=== PATIENT | female | born 1955 | race Caucasian/White ===

== ENCOUNTER 2017-11-12 04:16 | Emergency (ER) | END 2017-11-12 08:24 | disposition home or self-care (01) ==

== ENCOUNTER 2018-03-12 07:24 | Emergency (ER) | END 2018-03-12 10:22 | disposition home or self-care (01) ==

== ENCOUNTER 2018-07-24 20:03 | Emergency (ER) | END 2018-07-24 23:15 | disposition home or self-care (01) ==

== ENCOUNTER 2019-02-15 06:56 | Emergency (ER) | payer BC ==
[~2019-02-15] VITALS: Ht 162.6 cm; Wt 58.0 kg
[~2019-02-15 06:56] MED LIST: ATEN100T PO; BEN50 PO; CHOL200073 PO; FAMO20TA18 PO; LORA-1026 PO; UDATA PO
[2019-02-15] MEDS ORDERED: SODIUM CHLORIDE 0.9% 1L BAG IV* STA (07:04)
[2019-02-15] MEDS ORDERED: CEFEPIME 2GM/50 ML (PMX) 50 ML IVPB STA (07:05)
[2019-02-15] MEDS ORDERED: ONDANSETRON 4 MG INJ IV STA (07:25)
[2019-02-15] MEDS ORDERED: VANCOMYCIN 1 GM (PMX) 250 ML IVPB ONE (07:30)
[2019-02-15 07:44] VITALS: Ht 162.6 cm; Wt 58.0 kg
[2019-02-15] MEDS ORDERED: LORAZEPAM 2 MG INJ IV ONE (08:00)
[2019-02-15] MEDS ORDERED: METOCLOPRAMIDE 10 MG INJ IV ONE (09:00)
[2019-02-15] MEDS ORDERED: SOD CHLORIDE 0.9% 1,000 ML IV SCH (09:44)
--- NOTE | 2019-02-15 09:50 | ERD ---
ER Documentation Chief Complaint Chief Complaint NAUSEA, VOMITING, & MALAISE STARTING THIS MORNING HPI This is a 63-year-old female with a history of hypertension, GERD, anxiety who presents to the emergency room for evaluation of nausea, vomiting and generalized weakness. The patient states her symptoms started this morning when she woke up. She states that she has body aches and fever at home. She also states that she has a chills. She states that she also has abdominal cramping which she localized to the midportion of the abdomen however she denies any chest pain or painful urination. ROS All systems reviewed and are negative except as per history of present illness. Medications Home Meds Active Scripts Hydroxyzine Hcl* (Atarax*) 2 Mg/Ml Syrup, 25 MG PO Q6H PRN for ANXIETY, #14 ML Prov:MERLINE RIVERA MD 07/24/18 Famotidine* (Famotidine*) 20 Mg Tablet, 20 MG PO BID, #14 TAB Prov:MERLINE RIVERA MD 07/24/18 Diphenhydramine Hcl* (Benadryl*) 50 Mg Cap, 50 MG PO Q6 PRN for ITCHING, #20 CAP Prov:MERLINE RIVERA MD 07/24/18 Reported Medications Cholecalciferol (Vitamin D3) (VITAMIN D-3) 2,000 Unit Capsule, 2000 UNIT PO DAILY, CAP 07/24/18 Loratadine (Allergy) 10 Mg Tablet, 10 MG PO DAILY, TAB 07/24/18 Atenolol* (Atenolol*) 100 Mg Tablet, 100 MG PO DAILY for NEEDED, TAB 04/12/15 Allergies Allergies: Coded Allergies: codeine (Verified Allergy, Mild, 07/24/18) PMhx/Soc Medical and Surgical Hx: pt denies Medical Hx, pt denies Surgical Hx History of Surgery: Yes (Cholecystectomy, appendectomy and hysterectomy) Anesthesia Reaction: No Hx Neurological Disorder: No Hx Respiratory Disorders: No Hx Cardiac Disorders: Yes (HTN) Hx Psychiatric Problems: Yes (ANXIETY) Hx Miscellaneous Medical Probl: No Hx Alcohol Use: No Hx Substance Use: No Hx Tobacco Use: No Smoking Status: Never smoker Physical Exam Vitals Vital Signs Date Temp Pulse Resp B/P (MAP) Pulse Ox O2 O2 Flow FiO2 Time Delivery Rate 02/15/19 Nasal 2 07:44 Cannula 02/15/19 97.5 108 24 132/86 100 07:44 (101) Physical Exam INITIAL VITAL SIGNS: Reviewed by me GENERAL: The patient is frail-appearing elderly female, mild distress, dry vomit on shirt HEENT: Dry mucous membranes, pupils equal, round, and reactive to light. EOMI. There is no scleral icterus. NECK: C-spine is soft and supple, there is no meningismus. There is no cervical lymphadenopathy. LUNGS: Clear to auscultation bilaterally. There are no rales, wheezes or rhonchi. HEART: Tachycardic, no murmurs, clicks, rubs or gallops. ABDOMEN: Epigastric tenderness to palpation, otherwise soft, non-tender, non- distended. There are bowel sounds in all four quadrants. No rebound or guarding. EXTREMITIES: There is no peripheral cyanosis or edema. No focal swelling or erythema. NEUROLOGICAL: The patient moves all four extremities with 5/5 strength. Cranial nerves II - XII are intact. Normal gait. Alert and oriented SKIN: There is no apparent rash or petechiae. HEME/LYMPHATIC: There is no evidence of excessive bruising or lymphedema. PSYCHIATRIC: The patient does not appear anxious or depressed. Result Diagram: 02/15/19 0722 02/15/19 07 Results 24 hrs Laboratory Tests Test 02/15/19 07:22 02/15/19 08:15 White Blood Count 11.9 10^3/ul Red Blood Count 4.93 10^6/ul Hemoglobin 12.2 g/dl Hematocrit 39.4 % Mean Corpuscular Volume 79.9 fl Mean Corpuscular Hemoglobin 24.7 pg Mean Corpuscular Hemoglobin Concent 31.0 g/dl Red Cell Distribution Width 13.4 % Platelet Count 356 10^3/UL Mean Platelet Volume 9.6 fl Immature Granulocytes % 0.700 % Neutrophils % 69.1 % Lymphocytes % 24.0 % Monocytes % 4.8 % Eosinophils % 1.1 % Basophils % 0.3 % Nucleated Red Blood Cells % 0.0 /100WBC Immature Granulocytes # 0.080 10^3/ul Neutrophils # 8.3 10^3/ul Lymphocytes # 2.9 10^3/ul Monocytes # 0.6 10^3/ul Eosinophils # 0.1 10^3/ul Basophils # 0.0 10^3/ul Nucleated Red Blood Cells # 0.0 10^3/ul Prothrombin Time 13.2 Sec Prothrombin Time Ratio 1.0 INR International Normalized Ratio 0.99 Activated Partial Thromboplast Time 28.7 Sec Sodium Level 141 mmol/L Potassium Level 5.3 mmol/L Chloride Level 108 mmol/L Carbon Dioxide Level 23 mmol/L Anion Gap 10 Blood Urea Nitrogen 19 mg/dl Creatinine 0.68 mg/dl Est Glomerular Filtrat Rate mL/min > 60 mL/min Glucose Level 228 mg/dl POC Venous Lactate 2.8 mmol/L Calcium Level 10.1 mg/dl Total Bilirubin 0.5 mg/dl Direct Bilirubin 0.00 mg/dl Indirect Bilirubin 0.5 mg/dl Aspartate Amino Transf (AST/SGOT) 19 IU/L Alanine Aminotransferase (ALT/SGPT) 18 IU/L Alkaline Phosphatase 133 IU/L Troponin I 0.073 ng/ml Total Protein 7.3 g/dl Albumin 4.1 g/dl Globulin 3.20 g/dl Albumin/Globulin Ratio 1.28 Urine Color YELLOW Urine Clarity SLIGHTLY CLOUDY Urine pH 5.0 Urine Specific [place] 1.017 Urine Ketones TRACE mg/dL Urine Nitrite NEGATIVE mg/dL Urine Bilirubin NEGATIVE mg/dL Urine Urobilinogen NEGATIVE mg/dL Urine Leukocyte Esterase NEGATIVE Med/ul Urine Microscopic RBC 1 /HPF Urine Microscopic WBC 1 /HPF Urine Squamous Epithelial Cells FEW /HPF Urine Mucus FEW /HPF Urine Hemoglobin NEGATIVE mg/dL Urine Glucose 1+ mg/dL Urine Total Protein NEGATIVE mg/dl Current Medications Medications Dose Sig/Pennie Start Time Status Last (Trade) Ordered Route PRN Stop Time Admin Dose Reason Admin Sodium 2,500 ml BOLUS OVER 2 02/15/19 DC 02/15/19 Chloride HOURS STAT 07:04 02/15/19 07:32 (NS) IV* 07:05 Cefepime HCl 50 ml @ ONCE STAT 02/15/19 DC 02/15/19 100 mls/hr IVPB 07:05 02/15/19 07:40 07:34 Vancomycin 250 ml @ ONCE ONCE 02/15/19 DC 02/15/19 HCl 125 mls/hr IVPB 07:30 02/15/19 08:21 09:29 Ondansetron 4 mg ONCE STAT 02/15/19 DC 02/15/19 HCl (Zofran IV 07:25 02/15/19 07:30 Inj) 07:26 Lorazepam 0.5 mg ONCE ONCE 02/15/19 DC 02/15/19 (Ativan) IV 08:00 02/15/19 08:07 08:01 5 mg ONCE ONCE 02/15/19 DC 02/15/19 Metoclopramid IV 09:00 02/15/19 09:23 e HCl 09:01 (Reglan) Procedures/MDM EKG: Rate/Rhythm: Sinus tachycardia QRS, ST, T-waves: [No changes consistent w/ acute ischemia] Impression: [No evidence of ischemia or arrhythmia] Chest X-ray 1V Interpreted by me: Soft Tissue: No acute abnormalities Bones: No acute abnormalities Mediastinum/Cardiac Silhouette/Lungs: [No acute abnormalities] CT abdomen pelvis without: No evidence of urolithiasis, obstructive uropathy or diverticulitis. Nonvisualization appendix. Old granulomatous disease. Vascular calcifications.. This is a 63-year-old female with a history of hypertension, GERD, anxiety presents to the ER for evaluation of nausea, vomiting, body aches and generalized weakness. On my exam the patient had dry mucous membranes and she was tachycardic. She did have dried vomit on her clothing. A septic workup was started in the emergency room and the patient was given appropriate fluid bolus. The patient's lab work does not demonstrate leukocytosis, her chest x-ray is clear, influenza is negative. The patient does have elevated lactic acid however this is likely secondary to dehydration from her vomiting as opposed to an infectious source. The patient was given Zofran, however she continued to have nausea. The patient was given Reglan and continued to vomit. She was given Ativan as well with mild control of her nausea. She still states she is extremely nauseous and cannot tolerate p.o. fluids. CT of the abdomen and pelvis was obtained and does not show any acute pathology. Given her age and her presenting symptoms the patient will be admitted at this time for continuous IV fluids, and antiemetics. The patient will be admitted to panel physician Dr. Garcia Critical Care: Excluding all billable procedures Time: 47 minutes Treatments/Evaluations: Close monitoring and treatment of unstable vital signs, cardiorespiratory, and neurologic status, while maintaining tight balance of fluid, respiratory, and cardiac interventions. Departure Diagnosis: Primary Impression: Intractable vomiting Additional Impressions: Nausea and vomiting Abdominal pain Anxiety Condition: JENISE Wilson DO Feb 15, 2019 09:50
[2019-02-15 10:00] VITALS: BP 130/88; PULSE 111; RESP 24
[2019-02-15] MEDS ORDERED: ACETAMINOPHEN 325 MG TAB PO PRN (10:00)
[2019-02-15] MEDS ORDERED: ONDANSETRON 4 MG INJ IV PRN ×2 (10:00→10:30)
[2019-02-15] MEDS ORDERED: morphine 2 MG INJ IV PRN (10:30)
[2019-02-15] MEDS ORDERED: NACL 0.9% 3 ML SYG IV SCH (10:30)
[2019-02-15] MEDS ORDERED: PROP10TA6 ORAL (11:06)
[2019-02-15] MEDS ORDERED: HYDR-842 ORAL (11:06)
[2019-02-15] MEDS ORDERED: SPIR25TA PO (11:06)
[2019-02-15] MEDS ORDERED: OXYB10TA6 PO (11:06)
[2019-02-15] MEDS ORDERED: CHOL100062 PO (11:06)
[2019-02-15] MEDS ORDERED: CLON-379 PO (11:06)
[2019-02-15] MEDS ORDERED: METH-493 PO (11:06)
[2019-02-15] MEDS ORDERED: LISI-313 PO (11:06)
[2019-02-15] MEDS ORDERED: ASPI-817 PO (11:06)
--- NOTE | 2019-02-15 12:09 | EN ---
Date/Time of Note Date/Time of Note DATE: 02/15/19 TIME: 12:07 Event Note Medicine Medicine Event Note Patient admitted wtih nausea and vomiting CT benigng Labs notable for hyperglycemia very mild troponin elevated Patient appears unwell. Tachypneic. Mildly hypoxic. When I talked to her and via tranlsator phone they are asking to go home. I told them I am very worried something is wrong with her. Perhaps CHF, perhaps DE, perhpas sepsis. They understand my assessment that she is acutely ill and is at risk for imminent . Despite clearly undertanding this, the patient is asking to be discharged home. She has capacity to make this decision and I have clearly explained the risks to her. She accepts the risks and will sign out NATIVIDAD SPICER MD Feb 15, 2019 12:09
[2019-02-15] MEDS ORDERED: FAMOTIDINE 20 MG INJ IV SCH (21:00)
== END 2019-02-15 11:05 | disposition left against medical advice (07) ==
LOC: E/R 06:56 → CANRESERV 11:40 → CANBEDREQ 02-17 21:32
DX: R11.2 Nausea with vomiting, unspecified (principal); R10.9 Unspecified abdominal pain; F41.9 Anxiety disorder, unspecified; I10 Essential (primary) hypertension
CPT/HCPCS: 36415; 71045; 74176; 80053; 81001; 83605; 84484; 85025; 85610; 85730; 87040; 87086; 87400; 96374; 96375; 96376; J0692; J2060; J2405; J2765; J3370; J7030; Z7502; Z7610; 81003

== ENCOUNTER 2019-02-18 05:13 | Observation (INO) | payer BC ==
[~2019-02-18] VITALS: Ht 152.4 cm; Wt 66.4 kg
[2019-02-18] VITALS (7 sets, daily range): BP systolic 122–140; BP diastolic 72–93; PULSE 94–122; RESP 20–22; Ht 152.4 cm; Wt 66.4 kg
[~2019-02-18 05:13] MED LIST changes: +ASPI-817 PO; +CHOL100062 PO; +CLON-379 PO; +HYDR-842 ORAL; +LISI-313 PO; +METH-493 PO; +OXYB10TA6 PO; +PROP10TA6 ORAL; +SPIR25TA PO
[2019-02-18] MEDS: ACETAMINOPHEN 325 MG TAB PO ONE ×2 (06:23→06:53)
[2019-02-18] MEDS ORDERED: LORAZEPAM 2 MG INJ IV ONE ×2 (06:30→09:00)
--- NOTE | 2019-02-18 07:04 | ERD ---
ER Documentation Chief Complaint Chief Complaint mid sternal chest pain x1 hr. 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 The patient presents with multiple complaints that include headache, nausea, chest pain. Patient is having difficulty characterizing any of the symptoms. Duration for approximately 1-2 days. She did not note that she was here approximately 3 days ago and admitted but left AGAINST MEDICAL ADVICE. Patient is extremely anxious and does take anxiety medications. Remainder of HPI is limited given the patient's history. ROS All systems reviewed and are negative except as per history of present illness. Medications Home Meds Active Scripts Hydroxyzine Hcl* (Atarax*) 2 Mg/Ml Syrup, 25 MG PO Q6H PRN for ANXIETY, #14 ML Prov:MERLINE RIVERA MD 07/24/18 Famotidine* (Famotidine*) 20 Mg Tablet, 20 MG PO BID, #14 TAB Prov:MERLINE RIVERA MD 07/24/18 Diphenhydramine Hcl* (Benadryl*) 50 Mg Cap, 50 MG PO Q6 PRN for ITCHING, #20 CAP Prov:MERLINE RIVERA MD 07/24/18 Reported Medications Clonidine Hcl* (Clonidine Hcl*) 0.1 Mg Tab, 0.1 MG PO Q6H PRN for FOR HTN, TAB 02/15/19 Oxybutynin Chloride* (Ditropan* XL) 10 Mg Tab.er.24, 10 MG PO DAILY, TAB.SA 02/15/19 Aspirin* (Aspirin* EC) 81 Mg Tablet.dr, 81 MG PO DAILY, TAB 02/15/19 Spironolactone* (Aldactone*) 25 Mg Tablet, 25 MG PO DAILY, #30 TAB 02/15/19 Lisinopril* (Lisinopril*) 5 Mg Tablet, 5 MG PO DAILY, #30 TAB 02/15/19 Methimazole* (Methimazole*) 5 Mg Tablet, 5 MG PO TID, TAB 02/15/19 Cholecalciferol* (Vitamin D3*) 1,000 Unit Tablet, 5000 UNIT PO DAILY, TAB 02/15/19 Propranolol Hcl* (Propranolol Hcl*) 10 Mg Tablet, 1 TAB ORAL DAILY 02/15/19 Hydroxyzine Hcl* (Atarax*) 25 Mg Tab, 1 TAB ORAL TID PRN for ALLERGIC REACTION 02/15/19 Cholecalciferol (Vitamin D3) (VITAMIN D-3) 2,000 Unit Capsule, 2000 UNIT PO DAILY, CAP 07/24/18 Loratadine (Allergy) 10 Mg Tablet, 10 MG PO DAILY, TAB 07/24/18 Atenolol* (Atenolol*) 100 Mg Tablet, 100 MG PO DAILY for NEEDED, TAB 04/12/15 Allergies Allergies: Coded Allergies: codeine (Verified Allergy, Mild, 02/18/19) PMhx/Soc History of Surgery: Yes (Cholecystectomy, appendectomy and hysterectomy) Anesthesia Reaction: No Hx Neurological Disorder: No Hx Respiratory Disorders: No Hx Cardiac Disorders: Yes (HTN) Hx Psychiatric Problems: Yes (ANXIETY) Hx Miscellaneous Medical Probl: No Hx Alcohol Use: No Hx Substance Use: No Hx Tobacco Use: No FmHx Family History: No diabetes Physical Exam Vitals Vital Signs Date Temp Pulse Resp B/P (MAP) Pulse Ox O2 O2 Flow FiO2 Time Delivery Rate 02/18/19 74 20 112/68 97 Room Air 06:30 (83) 02/18/19 97.7 89 20 136/76 97 05:16 (96) Physical Exam General: Very anxious, hyperventilating Head: Normocephalic, atraumatic. Eyes: Pupils equally reactive, EOM intact ENT: Moist mucous membranes Neck: Supple, no lymphadenopathy Respiratory: Lungs clear bilaterally, no distress Cardiovascular: RRR, no murmurs, rubs, or gallops Abdominal: Soft, non-tender, non-distended, no peritoneal signs : Deferred MSK: No edema, no unilateral swelling, 5/5 strength Neurologic: Alert and oriented, moving all extremities, normal speech, no focal weakness, no cerebellar signs slightly limited exam given poor cooperation Skin: No rash Psych: Anxious mood Result Diagram: 02/18/19 0550 02/18/19 0550 Results 24 hrs Laboratory Tests Test 02/18/19 05:50 White Blood Count 9.8 10^3/ul Red Blood Count 4.21 10^6/ul Hemoglobin 10.6 g/dl Hematocrit 33.0 % Mean Corpuscular Volume 78.4 fl Mean Corpuscular Hemoglobin 25.2 pg Mean Corpuscular Hemoglobin Concent 32.1 g/dl Red Cell Distribution Width 14.2 % Platelet Count 262 10^3/UL Mean Platelet Volume 10.4 fl Immature Granulocytes % 0.300 % Neutrophils % 55.8 % Lymphocytes % 31.8 % Monocytes % 11.0 % Eosinophils % 0.9 % Basophils % 0.2 % Nucleated Red Blood Cells % 0.0 /100WBC Immature Granulocytes # 0.030 10^3/ul Neutrophils # 5.5 10^3/ul Lymphocytes # 3.1 10^3/ul Monocytes # 1.1 10^3/ul Eosinophils # 0.1 10^3/ul Basophils # 0.0 10^3/ul Nucleated Red Blood Cells # 0.0 10^3/ul Sodium Level 143 mmol/L Potassium Level 3.6 mmol/L Chloride Level 107 mmol/L Carbon Dioxide Level 24 mmol/L Anion Gap 12 Blood Urea Nitrogen 26 mg/dl Creatinine 0.65 mg/dl Est Glomerular Filtrat Rate mL/min > 60 mL/min Glucose Level 118 mg/dl Calcium Level 8.9 mg/dl Total Bilirubin 1.0 mg/dl Direct Bilirubin 0.00 mg/dl Indirect Bilirubin 1.0 mg/dl Aspartate Amino Transf (AST/SGOT) 24 IU/L Alanine Aminotransferase (ALT/SGPT) 21 IU/L Alkaline Phosphatase 89 IU/L Troponin I 0.103 ng/ml B-Type Natriuretic Peptide 4980 PG/ML Total Protein 6.2 g/dl Albumin 3.2 g/dl Globulin 3.00 g/dl Albumin/Globulin Ratio 1.06 Current Medications Medications Dose Sig/Pennie Start Time Status Last (Trade) Ordered Route PRN Stop Time Admin Dose Reason Admin Lorazepam 0.5 mg ONCE ONCE 02/18/19 DC 02/18/19 (Ativan) IV 06:30 02/18/19 06:23 06:31 650 mg ONCE ONCE 02/18/19 DC Acetaminophen PO 06:30 02/18/19 (Tylenol 06:31 Tab) Aspirin 324 mg ONCE ONCE 02/18/19 DC 02/18/19 (Aspirin) PO 07:30 02/18/19 07:15 07:31 Ondansetron 4 mg ER BRIDGE 02/18/19 HCl (Zofran PRN IV 08:00 Inj) NAUSEA/VOMITI 02/19/19 07:59 NG 650 mg ER BRIDGE 02/18/19 Acetaminophen PRN PO 08:00 (Tylenol .MILD PAIN 02/19/19 07:59 Tab) 1-3 OR TEMP Procedures/MDM EKG, MONITORS, & DIAGNOSTIC IMAGING: EKG: I reviewed and interpreted a 12-lead EKG. Rhythm: Normal sinus rhythm ST Changes: No contiguous ST segment elevations T waves: Lateral T wave inversions that are contiguous and new Impression: Abnormal EKG Repeat EKG: EKG: I reviewed and interpreted a 12-lead EKG. Rhythm: Normal sinus rhythm ST Changes: No contiguous ST segment elevations T waves: Lateral T wave inversions that are contiguous and new Impression: Abnormal EKG Chest x-ray: I reviewed and interpreted a 1 view of the chest Mediastinum: No enlargement Cardiac silhouette: No cardiomegaly Airspace: Clear lung sawyer bilaterally without evidence of pneumothorax Bones: No evidence of fracture CT brain: No acute process per radiologist read PROCEDURES: [None] LAB INTERPRETATION: * Elevated BNP * Indeterminate troponin MEDICAL DECISION MAKING: The patient's history, physical exam and clinical presentation is concerning for possible cardiogenic etiology and acute coronary syndrome. I am concerned about the patient's new T wave inversions. The patient is very nondescript with her symptoms. There is a strong component of anxiety but given her age, abnormal EKG inpatient hospitalization would be appropriate. Based on the patient's clinical exam and history and risk factors, I have a much lower clinical concern for pulmonary embolism, acute aortic dissection, pneumothorax, pneumonia, cardiac tamponade HEART Score: > 3 MACE Rate: upwards of 16.6% Shared Decision Making: We had a conversation regarding risk stratification, MACE rate, and the risks, benefits, alternatives of disposition planning options. Disposition planning: Admit ER COURSE: * Anxiolysis and aspirin provided. Aspirin given after negative CT brain. * The patient's presentation and does not seem to be consistent with pulmonary embolism. The BNP is slightly elevated. Consider possible new onset CHF. No shortness of breath, no tachycardia no hypoxia to suggest need for CTPA. CONSULTATION: [None] DISPOSITION PLAN: Accepting care team and consultations: I discussed the current laboratory data, diagnostic imaging and emergency care provided. Admitting team: Dr. Villarreal notified via [employer] at approximately 7:46 AM Admitting team indication: Insurance directed Departure Diagnosis: Primary Impression: Chest pain Chest pain type: unspecified Qualified Codes: R07.9 - Chest pain, unspecified Additional Impressions: Anxiety Abnormal EKG Condition: Stable OSMANY PEÑA MD Feb 18, 2019 07:04
[2019-02-18] MEDS ORDERED: ASPIRIN 81 MG TAB PO ONE (07:30)
[2019-02-18] MEDS ORDERED: ACETAMINOPHEN 325 MG TAB PO PRN ×2 (08:00→11:30)
[2019-02-18] MEDS ORDERED: ONDANSETRON 4 MG INJ IV PRN ×2 (08:00→11:30)
--- NOTE | 2019-02-18 11:29 | HP ---
Date/Time of Note Date/Time of Note DATE: 02/18/19 TIME: 11:22 Assessment/Plan VTE Prophylaxis SCD applied (from Nsg): Yes Pharmacological prophylaxis: LMWH Lines/Catheters IV Catheter Type (from Nrsg): Saline Lock Assessment/Plan Hospital Course SUBJECTIVE: Patient appears very anxious and having mild shortness of breath. She also reports chest discomfort. OBJECTIVE: Vital signs-see below PHYSICAL EXAM: Constitutional: Chinese speaking female who is also anxious, having mild VELÁZQUEZ HEENT: Head atraumatic and normocephalic. Eyes: Extraocular muscles intact. Anicteric sclerae. Pupils equal bilaterally, reactive to light. NECK: Supple without lymph node. CHEST: Clear and good breath sounds equally. No wheezing. No rhonchi. HEART: S1, S2. Regular rate and rhythm. ABDOMEN: Soft, nontender. Bowel sounds were present. EXTREMITIES: Full range of motion in all the extremities. No cyanosis, clubbing or edema. NEUROLOGIC: Alert and oriented x3. No focal deficit. No sensory deficit. PSYCHOSOCIAL: Extremely anxious. INTEGUMENTARY: Moist mucous membranes. Good skin turgor, intact. ASSESSMENT AND PLAN: 63-year-old Chinese speaking female with history of hypertension, allergies,hyperthyroidism, overactive bladder, vitamin D deficiency, here with chest pain,anxiety, dyspnea on exertion, and headache. 1. Chest pain /VELÁZQUEZ syndrome with elevated BNP/abnormal EKG, rule out acute coronary syndrome/CHF vs other. -Admit to telemetry -ACS workup including biomarkers, repeat EKG -Cardiology consult -Aspirin prophylaxis, as needed nitro, as needed morphine for pain control -TSH, T4 level 2. Microcytic anemia, rule out iron deficiency -Stable H&H. In light of patient with dyspnea and chest pain, I will go ahead and give 1 dose of IV iron and will add iron panel and treat accordingly. 3. Essential hypertension -Stable. Resume home medications 4. Hyperthyroidism -Patient is extremely anxious and she is also hyperventilating. She denied having a history of taking medication for hypothyroidism. At this time, we will obtain TSH /T4/T3 levels to make sure she is appropriately dosed on her medications. -Resume methimazole. 5. Overactive bladder. -Resume Ditropan 6. Vitamin D deficiency -Resume supplementation and obtain a vitamin D level. 7. Seasonal allergy disorders -Resume antihistamines. DVT prophylaxis: Lovenox PUD prophylaxis: H2 blockers CODE STATUS: Full code Diet: N.p.o. except medications until evaluated by cardiology. Rest of the management depend on hospital course. Approximately 60 minutes was spent on this history and physical. Patient was seen in collaboration with Dr. Miles. Result Diagram: 02/18/19 0550 02/18/19 0550 Results 24hrs Laboratory Tests Test 02/18/19 05:50 White Blood Count 9.8 Red Blood Count 4.21 Hemoglobin 10.6 L Hematocrit 33.0 L Mean Corpuscular Volume 78.4 L Mean Corpuscular Hemoglobin 25.2 L Mean Corpuscular Hemoglobin Concent 32.1 Red Cell Distribution Width 14.2 Platelet Count 262 # Mean Platelet Volume 10.4 Immature Granulocytes % 0.300 Neutrophils % 55.8 Lymphocytes % 31.8 Monocytes % 11.0 Eosinophils % 0.9 Basophils % 0.2 Nucleated Red Blood Cells % 0.0 Immature Granulocytes # 0.030 Neutrophils # 5.5 Lymphocytes # 3.1 H Monocytes # 1.1 H Eosinophils # 0.1 Basophils # 0.0 Nucleated Red Blood Cells # 0.0 Sodium Level 143 Potassium Level 3.6 Chloride Level 107 Carbon Dioxide Level 24 Anion Gap 12 Blood Urea Nitrogen 26 H Creatinine 0.65 Est Glomerular Filtrat Rate mL/min > 60 Glucose Level 118 Calcium Level 8.9 Total Bilirubin 1.0 Direct Bilirubin 0.00 Indirect Bilirubin 1.0 Aspartate Amino Transf (AST/SGOT) 24 Alanine Aminotransferase (ALT/SGPT) 21 Alkaline Phosphatase 89 Troponin I 0.103 B-Type Natriuretic Peptide 4980 H Total Protein 6.2 Albumin 3.2 L Globulin 3.00 Albumin/Globulin Ratio 1.06 Triglycerides Level 124 Cholesterol Level 119 LDL Cholesterol, Calculated 69 HDL Cholesterol 25 L Cholesterol/HDL Ratio 4.7 Thyroid Stimulating Hormone (TSH) Pending Free Triiodothyronine (T3) pg/mL Pending HPI/ROS Admit Date/Time Admit Date/Time Feb 18, 2019 at 08:01 Hx of Present Illness This is a 63-year-old Chinese female who is also a poor historian with lack of insight, with a past medical history of allergies, hypertension, hyperthyroidism, overactive bladder, vitamin D deficiency, presented to the [facility] room with chest pain with shortness of breath started yesterday. Apparently, patient has been having a headache for a couple of days prior to eat. She denied palpitation, diaphoresis, nausea, vomiting, abdominal pain, loss of consciousness, dizziness, numbness, tingling, fever, chills, diarrhea or other constitutional symptoms. She appeared extremely anxious with dyspnea on exertion with my encounter. Initial labs showed troponin 0.103, BNP 4980, hemoglobin 10.6, hematocrit 33.0. Initial EKG showed sinus rhythm with T wave inversion. Chest x-ray showed mild cardiomegaly without congestive heart failure or pneumonia. There was tiny right pleural effusion. A brain CT showed mild generalized cerebral volume loss and nonspecific chronic microvascular ischemic disease with no evidence of intracranial masses, hemorrhage or midline shift. Vital signs stable. In ER, patient was given aspirin 325 mg, Tylenol 650 mg, Ativan 1 mg IV and a clinical decision was made to admit for further cardiology workup. ROS A 12 point review of system was assessed and is negative other than what is mentioned in the HPI. PMH/Family/Social Past Medical History See HPI Medications Current Medications Ondansetron HCl (Zofran Inj) 4 mg ER BRIDGE PRN IV NAUSEA/VOMITING; Start 02/18/19 at 08:00; Stop 02/19/19 at 07:59 Acetaminophen (Tylenol Tab) 650 mg ER BRIDGE PRN PO .MILD PAIN 1-3 OR TEMP; Sta rt 02/18/19 at 08:00; Stop 02/19/19 at 07:59 Coded Allergies: codeine (Verified Allergy, Mild, 02/18/19) Past Surgical History Cholecystectomy/appendectomy/hysterectomy Social History Denied history of alcohol, smoking or illicit drug use. Smoking Status: Never smoker Exam/Review of Systems Vital Signs Vitals Vital Signs Date Temp Pulse Resp B/P (MAP) Pulse Ox O2 O2 Flow FiO2 Time Delivery Rate 02/18/19 98.3 97 20 122/72 95 11:03 (89) 02/18/19 Room Air 09:33 MADDIE CONRAD NP Feb 18, 2019 11:29
[2019-02-18] MEDS ORDERED: NACL 0.9% 3 ML SYG IV SCH (11:30)
[2019-02-18] MEDS ORDERED: DOCUSATE SODIUM 100 MG CAP PO PRN (11:30)
[2019-02-18] MEDS ORDERED: morphine 2 MG INJ IV PRN (11:30)
[2019-02-18] MEDS ORDERED: NITROGLYCERIN (SL) 0.4 MG TAB SL PRN (11:30)
[2019-02-18] MEDS ORDERED: METHIMAZOLE 5 MG TAB PO SCH (13:00)
[2019-02-18] MEDS ORDERED: SOD FERRIC GLUC COMPLX 125 MG in SOD CHLORIDE 0.9% 100 ML IVPB ONE (16:00)
--- NOTE | 2019-02-18 17:51 | CONS ---
Assessment/Plan Assessment/Plan Problems: (1) Thyrotoxicosis Status: Chronic Comment: She is significantly hyperthyroid and reportedly on medications for this. Her medicine dosage needs to be adjusted upward to get her under control. Please note this is going to aggravate an awful lot of problems with her anxiety disorder Qualifiers: Qualified Codes: E05.00 - Thyrotoxicosis with diffuse goiter without thyrotoxic crisis or storm (2) Anxiety Status: Acute Comment: As per primary team. (3) Hypertension Status: Acute Comment: On beta-blockade and ABIGAIL inhibitor Qualifiers: Qualified Codes: I10 - Essential (primary) hypertension (4) Chest pain Status: Acute Comment: Being ruled out although I do not believe this represents true cardiac disease Qualifiers: Qualified Codes: R07.9 - Chest pain, unspecified Consultation Date/Type/Reason Admit Date/Time Feb 18, 2019 at 08:01 Date of Consultation: Feb 18, 2019 Type of Consult Endocrinology Reason for Consultation Severe thyrotoxicosis; chest pain syndrome; severe anxieties; Requesting Provider: MADDIE CONRAD NP Date/Time of Note DATE: 02/18/19 TIME: 17:46 Hx of Present Illness This is the first [facility] admission for this 63-year-old right-handed Urdu female. She is normally taken care of by Dr. Jodee Healy, and Dr. Irvin Fletcher. She has no idea of the medications that she is on at home and is unable to delineate that. Her is supposed to be bringing her medications. The medication reconciliation from the emergency room does state that she is on methimazole 3 times a day. Patient r eports she has no idea of ever having had a prior thyroid problem. Constitutional: no complaints (Denies fevers chills or sweats) Eyes: no complaints ENT: no complaints Respiratory: no complaints Cardiovascular: chest pain, palpitations Gastrointestinal: no complaints Genitourinary: no complaints Musculoskeletal: no complaints Skin: no complaints Endocrine: no complaints Past Medical History Medical History: hypertension, hyperthyroid, other (Severe anxiety disorder) Home Meds Active Scripts Hydroxyzine Hcl* (Atarax*) 2 Mg/Ml Syrup, 25 MG PO Q6H PRN for ANXIETY, #14 ML Prov:MERLINE RIVERA MD 9/12/18 Famotidine* (Famotidine*) 20 Mg Tablet, 20 MG PO BID, #14 TAB Prov:MERLINE RIVERA MD 07/24/18 Diphenhydramine Hcl* (Benadryl*) 50 Mg Cap, 50 MG PO Q6 PRN for ITCHING, #20 CAP Prov:MERLINE RIVERA MD 07/24/18 Reported Medications Clonidine Hcl* (Clonidine Hcl*) 0.1 Mg Tab, 0.1 MG PO Q6H PRN for FOR HTN, TAB 02/15/19 Oxybutynin Chloride* (Ditropan* XL) 10 Mg Tab.er.24, 10 MG PO DAILY, TAB.SA 02/15/19 Aspirin* (Aspirin* EC) 81 Mg Tablet.dr, 81 MG PO DAILY, TAB 02/15/19 Spironolactone* (Aldactone*) 25 Mg Tablet, 25 MG PO DAILY, #30 TAB 02/15/19 Lisinopril* (Lisinopril*) 5 Mg Tablet, 5 MG PO DAILY, #30 TAB 02/15/19 Methimazole* (Methimazole*) 5 Mg Tablet, 5 MG PO TID, TAB 02/15/19 Cholecalciferol* (Vitamin D3*) 1,000 Unit Tablet, 5000 UNIT PO DAILY, TAB 02/15/19 Propranolol Hcl* (Propranolol Hcl*) 10 Mg Tablet, 1 TAB ORAL DAILY 02/15/19 Cholecalciferol (Vitamin D3) (VITAMIN D-3) 2,000 Unit Capsule, 2000 UNIT PO DAILY, CAP 07/24/18 Loratadine (Allergy) 10 Mg Tablet, 10 MG PO DAILY, TAB 07/24/18 Atenolol* (Atenolol*) 100 Mg Tablet, 100 MG PO DAILY for NEEDED, TAB 04/12/15 Discontinued Reported Medications Hydroxyzine Hcl* (Atarax*) 25 Mg Tab, 1 TAB ORAL TID PRN for ALLERGIC REACTION 02/15/19 Medications Current Medications Ondansetron HCl (Zofran Inj) 4 mg ER BRIDGE PRN IV NAUSEA/VOMITING; Start 02/18/19 at 08:00; Stop 02/19/19 at 07:59 Acetaminophen (Tylenol Tab) 650 mg ER BRIDGE PRN PO .MILD PAIN 1-3 OR TEMP; Start 02/18/19 at 08:00; Stop 02/19/19 at 07:59 Aspirin (Halfprin) 81 mg DAILY PO ; Start 02/19/19 at 09:00 Atenolol (Tenormin) 100 mg DAILY PO ; Start 02/19/19 at 09:00 Cholecalciferol (Vitamin D) 2,000 unit DAILY PO ; Start 02/19/19 at 09:00 Famotidine (Pepcid) 20 mg BID PO ; Start 02/18/19 at 21:00 Lisinopril (Zestril) 5 mg DAILY PO ; Start 02/19/19 at 09:00 Loratadine (Claritin) 10 mg DAILY PO ; Start 02/19/19 at 09:00 Methimazole (Tapazole) 5 mg TID PO Last administered on 02/18/19at 14:43; Admin Dose 5 MG; Start 02/18/19 at 13:00 Oxybutynin Chloride (Ditropan Xl) 10 mg DAILY PO ; Start 02/19/19 at 09:00 Spironolactone (Aldactone) 25 mg DAILY PO ; Start 02/19/19 at 09:00 IV Flush (NS 3 ml) 3 ml PER PROTOCOL IV ; Start 02/18/19 at 11:30 Ondansetron HCl (Zofran Inj) 4 mg Q6H PRN IV NAUSEA/VOMITING; Start 02/18/19 at 11:30 Acetaminophen (Tylenol Tab) 650 mg Q6H PRN PO .PAIN 1-3 OR TEMP; Start 02/18/19 at 11:30 Morphine Sulfate (morphine) 2 mg Q4H PRN IV .SEVERE PAIN 7-10; Start 02/18/19 at 11:30 Docusate Sodium (Colace) 100 mg Q12H PRN PO .CONSTIPATION; Start 02/18/19 at 11:30 Enoxaparin Sodium (Lovenox) 40 mg DAILY SC ; Start 02/19/19 at 09:00 Nitroglycerin (Nitroglycerin (Sl Tab) 0.4 Mg) 1 tab Q5M PRN SL ANGINA; Start 02/18/19 at 11:30 Allergies: Coded Allergies: codeine (Verified Allergy, Mild, 02/18/19) Past Surgical History Past Surgical Hx: noncontributory Family History Significant Family History: no pertinent family hx Social History Alcohol Use: none Smoking Status: Never smoker Drug Use: none Exam/Review of Systems Exam Vitals Vital Signs Date Temp Pulse Resp B/P (MAP) Pulse Ox O2 O2 Flow FiO2 Time Delivery Rate 02/18/19 98.3 96 22 139/76 96 Room Air 16:10 (97) Constitutional: alert, oriented Eyes: other (No exophthalmos or lid lag) Neck: supple, non-tender, thyromegaly (Thyroid with minimal enlargement without palpable nodularity) Respiratory: clear to auscultation, normal air movement Cardiovascular: regular rate and rhythm, nl pulses Gastrointestinal: soft, nl liver, spleen, non-tender Neurological: other (Positive tremor) Results Result Diagram: 02/18/19 0550 02/18/19 0550 Results 24hrs Laboratory Tests Test 02/18/19 05:50 02/18/19 11:49 White Blood Count 9.8 Red Blood Count 4.21 Hemoglobin 10.6 L Hematocrit 33.0 L Mean Corpuscular Volume 78.4 L Mean Corpuscular Hemoglobin 25.2 L Mean Corpuscular Hemoglobin Concent 32.1 Red Cell Distribution Width 14.2 Platelet Count 262 # Mean Platelet Volume 10.4 Immature Granulocytes % 0.300 Neutrophils % 55.8 Lymphocytes % 31.8 Monocytes % 11.0 Eosinophils % 0.9 Basophils % 0.2 Nucleated Red Blood Cells % 0.0 Immature Granulocytes # 0.030 Neutrophils # 5.5 Lymphocytes # 3.1 H Monocytes # 1.1 H Eosinophils # 0.1 Basophils # 0.0 Nucleated Red Blood Cells # 0.0 Sodium Level 143 Potassium Level 3.6 Chloride Level 107 Carbon Dioxide Level 24 Anion Gap 12 Blood Urea Nitrogen 26 H Creatinine 0.65 Est Glomerular Filtrat Rate mL/min > 60 Glucose Level 118 Hemoglobin A1c 6.0 H Calcium Level 8.9 Total Bilirubin 1.0 Direct Bilirubin 0.00 Indirect Bilirubin 1.0 Aspartate Amino Transf (AST/SGOT) 24 Alanine Aminotransferase (ALT/SGPT) 21 Alkaline Phosphatase 89 Troponin I 0.103 0.063 B-Type Natriuretic Peptide 4980 H Total Protein 6.2 Albumin 3.2 L Globulin 3.00 Albumin/Globulin Ratio 1.06 Triglycerides Level 124 Cholesterol Level 119 LDL Cholesterol, Calculated 69 HDL Cholesterol 25 L Cholesterol/HDL Ratio 4.7 Thyroid Stimulating Hormone (TSH) < 0.015 L Free Thyroxine 4.27 H Free Triiodothyronine (T3) pg/mL 7.54 H Iron Level 34 L Total Iron Binding Capacity 268 Percent Iron Saturation 13 L Ferritin 263.0 Creatine Kinase < 20 L Creatine Kinase Index Creatinine Kinase MB (Mass) 0.67 Vitamin D 1,25-Dihydroxy 25.2 L Medications Medication Current Medications Ondansetron HCl (Zofran Inj) 4 mg ER BRIDGE PRN IV NAUSEA/VOMITING; Start 02/18/19 at 08:00; Stop 02/19/19 at 07:59 Acetaminophen (Tylenol Tab) 650 mg ER BRIDGE PRN PO .MILD PAIN 1-3 OR TEMP; Start 02/18/19 at 08:00; Stop 02/19/19 at 07:59 Aspirin (Halfprin) 81 mg DAILY PO ; Start 02/19/19 at 09:00 Atenolol (Tenormin) 100 mg DAILY PO ; Start 02/19/19 at 09:00 Cholecalciferol (Vitamin D) 2,000 unit DAILY PO ; Start 02/19/19 at 09:00 Famotidine (Pepcid) 20 mg BID PO ; Start 02/18/19 at 21:00 Lisinopril (Zestril) 5 mg DAILY PO ; Start 02/19/19 at 09:00 Loratadine (Claritin) 10 mg DAILY PO ; Start 02/19/19 at 09:00 Methimazole (Tapazole) 5 mg TID PO Last administered on 02/18/19at 14:43; Admin Dose 5 MG; Start 02/18/19 at 13:00 Oxybutynin Chloride (Ditropan Xl) 10 mg DAILY PO ; Start 02/19/19 at 09:00 Spironolactone (Aldactone) 25 mg DAILY PO ; Start 02/19/19 at 09:00 IV Flush (NS 3 ml) 3 ml PER PROTOCOL IV ; Start 02/18/19 at 11:30 Ondansetron HCl (Zofran Inj) 4 mg Q6H PRN IV NAUSEA/VOMITING; Start 02/18/19 at 11:30 Acetaminophen (Tylenol Tab) 650 mg Q6H PRN PO .PAIN 1-3 OR TEMP; Start 02/18/19 at 11:30 Morphine Sulfate (morphine) 2 mg Q4H PRN IV .SEVERE PAIN 7-10; Start 02/18/19 at 11:30 Docusate Sodium (Colace) 100 mg Q12H PRN PO .CONSTIPATION; Start 02/18/19 at 11:30 Enoxaparin Sodium (Lovenox) 40 mg DAILY SC ; Start 02/19/19 at 09:00 Nitroglycerin (Nitroglycerin (Sl Tab) 0.4 Mg) 1 tab Q5M PRN SL ANGINA; Start 02/18/19 at 11:30 SHIVAM MATIAS MD Feb 18, 2019 17:51
[2019-02-18] MEDS: METHIMAZOLE 5 MG TAB PO SCH ×2 (21:00→22:29)
[2019-02-18] MEDS: FAMOTIDINE 20 MG TAB PO SCH (22:30)
[2019-02-18] MEDS ORDERED: HALOPERIDOL 5 MG INJ IM ONE (22:30)
[2019-02-19] VITALS: PULSE 115
[2019-02-19 00:08] VITALS: BP 158/83; PULSE 120; RESP 20
[2019-02-19 04:00] VITALS: BP 156/93; PULSE 110; PULSE 99; RESP 18
--- NOTE | 2019-02-19 06:55 | CONS ---
DATE OF ADMISSION: 02/18/2019 DATE OF CONSULTATION: 02/18/2019 TYPE OF CONSULTATION: Cardiology. REFERRING PHYSICIAN: Ben Peoples MD REASON FOR EVALUATION: Precordial chest pain. HISTORY OF PRESENT ILLNESS: Mr. Garcia is a pleasant 63-year-old woman, [place] speaking mostl y, with history of hyperthyroidism, history of vitamin deficiency, prior episodes of chest pain and d yspnea, patient of Dr. Fletcher, who comes to the hospital now for abdominal and precordial chest pain. The patient had some nonspecific ST changes on EKG and I have been asked to see patient in consultat ion for troponins, borderline mostly negative. She does not at this particular point. I tried to call Dr. Fletcher's office but was not able to reach anybody to help me at the moment. I do not kno w is she had a recent recertification. If she had a recent stress test, I think medical optimization would be reasonable. If the patient has not had any recent recertification with a stress test for repeat stress testing. Other than that conservative therapy would be expected. PAST MEDICAL HISTORY: 1. Hypertension. 2. Dyslipidemia. 3. History of microcytic anemia. 4. History of anxiety. 5. Hydralazine as noted for stress. SOCIAL HISTORY: She does not smoke, does not drink, does not use drugs. FAMILY HISTORY: Negative for sudden cardiac or premature coronary artery disease. MEDICATIONS: 1. Aspirin 81 100 mg p.o. once a day. 2. Lisinopril a day. 3. Loratadine. 4. Spironolactone 25. 5. Propranolol 10 mg once a day. 6. Subcu Lovenox for DVT prophylaxis. 7. Nitroglycerin. REVIEW OF SYSTEMS: CONSTITUTIONAL: No fevers, no chills. No recent weight change. HEENT: No changes. CARDIAC: Chest pain reported. . . NEUROLOGIC: No focal neurologic deficits. PHYSICAL EXAMINATION: VITAL SIGNS: Temperature is 98.3, heart rate 97, blood pressure is . GENERAL: She is well-nourished woman in no acute distress, alert and oriented x3, aware of her condi tion. NECK: Supple. JVD 6 cm. There is no lymphadenopathy. HEART: Regular with soft holosystolic murmur. PMI . ABDOMEN: Bowel sounds are present, . EXTREMITIES: No clubbing, cyanosis, or edema. LABORATORY DATA: White blood cell count 9.7, hemoglobin 10.6, platelets 262. INR is 1.0. Troponin is negative at 0.073, now . ASSESSMENT AND PLAN: Precordial discomfort. Patient has precordial discomfort. She has some risk f actors for coronary artery disease with some degree of anxiety. I think for now, expected. W e will see if patient had a recent stress test. If she did and it was negative, then, the medical op timization will be warranted. If patient did not have a stress test, then I would recommend the joi ent have a stress test while she is here. 1. Hypertension. Blood pressure controlled now. 2. Beta guerline. Simultaneously, will try to consolidate her regimen. 3. Anxiety. Continue care as indicated. 4. Anemia. Hemoglobin is fairly stable recently. 5. Nystatin to follow. I would like to thank Dr. Peoples for referring this patient. Dictated By: RACHID SWANN MD ML/NTS Conf#: [id number] DID#: [id number] CC: BEN PEOPLES MD; MARCELINA BIRMINGHAM MD;*[facility]*
[2019-02-19 07:48] VITALS: BP 161/96; PULSE 114
[2019-02-19] MEDS: FAMOTIDINE 20 MG TAB PO SCH (08:18)
[2019-02-19 08:36] VITALS: PULSE 103
[2019-02-19] MEDS ORDERED: ASPIRIN (EC) 81 MG TAB PO SCH (09:00)
[2019-02-19] MEDS ORDERED: ENOXAPARIN 40 MG/0.4 ML SYG SC SCH (09:00)
[2019-02-19] MEDS ORDERED: ATENOLOL 100 MG TAB PO SCH (09:00)
[2019-02-19] MEDS ORDERED: SPIRONOLACTONE 25 MG TAB PO SCH (09:00)
[2019-02-19] MEDS ORDERED: PROPRANOLOL 10 MG TAB PO SCH (09:00)
[2019-02-19] MEDS ORDERED: LISINOPRIL 5 MG TAB PO SCH (09:00)
[2019-02-19] MEDS ORDERED: CHOLECALCIFEROL 2,000 UNIT CAP PO SCH (09:00)
[2019-02-19] MEDS ORDERED: OXYBUTYNIN (XL) 5 MG TAB PO SCH (09:00)
[2019-02-19] MEDS ORDERED: LORATADINE 10 MG TAB PO SCH (09:00)
--- NOTE | 2019-02-19 10:51 | DS ---
Date/Time of Note Date/Time of Note DATE: 02/19/19 TIME: 10:48 Discharge Summary Admission/Discharge Info Admit Date/Time Feb 18, 2019 at 08:01 Discharge Date/Time 02/19/2019 (AGAINST MEDICAL ADVICE) Discharge Diagnosis 1. Hyperthyroid state with thyrotoxicosis. Noncompliance with methimazole. 2. Chest pain/anxiety/panic attack likely secondary to #1. ACS ruled out with negative cardiac markers. Patient refused stress test. 3. Elevated BNP. Pending 2D echocardiogram. Patient left AGAINST MEDICAL ADVICE prior report availability. 4. Iron deficient anemia 5. Essential hypertension 6. Overactive bladder. 7. Vitamin D deficiency 8. Seasonal allergy disorders 9. Noncompliance with poor insight into medical condition.. Consults ,endocrinology ,cards Hx of Present Illness This is a 63-year-old Bulgarian female who is also a poor historian with lack of insight, with a past medical history of allergies, hypertension, hyperthyroidism, overactive bladder, vitamin D deficiency, presented to the emergency room with chest pain with shortness of breath started yesterday. Apparently, patient has been having a headache for a couple of days prior to eat. She denied palpitation, diaphoresis, nausea, vomiting, abdominal pain, loss of consciousness, dizziness, numbness, tingling, fever, chills, diarrhea or other constitutional symptoms. She appeared extremely anxious with dyspnea on exertion with my encounter. Initial labs showed troponin 0.103, BNP 4980, hemoglobin 10.6, hematocrit 33.0. Initial EKG showed sinus rhythm with T wave inversion. Chest x-ray showed mild cardiomegaly without congestive heart failure or pneumonia. There was tiny right pleural effusion. A brain CT showed mild generalized cerebral volume loss and nonspecific chronic microvascular ischemic disease with no evidence of intracranial masses, hemorrhage or midline shift. Vital signs stable. In ER, patient was given aspirin 325 mg, Tylenol 650 mg, Ativan 1 mg IV and a clinical decision was made to admit for further cardiology workup. Hospital Course Patient had 3 sets of negative troponin and her EKG was negative for acute ST or T changes. Patient was also scheduled for a stress test which she refused. Patient was noted with extreme anxiety/panic attack . Patient's labs showed significant hyperthyroid state. Patient was seen by textiles and clothing teacher. Unfortunately, patient with poor insight into her hyperthyroid state and she refused taking methimazole which she was supposed to be. She reported that she was never taken this medication and does not believe that she needs to be on this medicine. Patient was also noted with elevated BNP and a 2D echocardiogram report is currently pending to rule out heart failure. Patient does not want to stay in the hospital and wanted to go AGAINST MEDICAL ADVICE. Patient was also seen by case management social worker. She remains alert and oriented. Patient has been will pick patient home and will take her to her primary care doctor for follow-up. Despite our efforts, patient had decided to leave AGAINST MEDICAL ADVICE. Patient has normal mental status and full decisional capacity. Patient understood her condition and the risk of leaving AMA, including but not limited to permanent disability, etc., and had an opportunity to ask questions about own medical condition. The patient has been informed that the patient may return for care anytime and has been referred to primary care provider for follow-up as soon as possible. Case discussed with Dr. Miles. Home Meds Active Scripts Hydroxyzine Hcl* (Atarax*) 2 Mg/Ml Syrup, 25 MG PO Q6H PRN for ANXIETY, #14 ML Prov:MERLINE RIVERA MD 07/24/18 Famotidine* (Famotidine*) 20 Mg Tablet, 20 MG PO BID, #14 TAB Prov:MERLINE RIVERA MD 07/24/18 Diphenhydramine Hcl* (Benadryl*) 50 Mg Cap, 50 MG PO Q6 PRN for ITCHING, #20 CAP Prov:MERLINE RIVERA MD 07/24/18 Reported Medications Clonidine Hcl* (Clonidine Hcl*) 0.1 Mg Tab, 0.1 MG PO Q6H PRN for FOR HTN, TAB 02/15/19 Oxybutynin Chloride* (Ditropan* XL) 10 Mg Tab.er.24, 10 MG PO DAILY, TAB.SA 02/15/19 Aspirin* (Aspirin* EC) 81 Mg Tablet.dr, 81 MG PO DAILY, TAB 02/15/19 Spironolactone* (Aldactone*) 25 Mg Tablet, 25 MG PO DAILY, #30 TAB 02/15/19 Lisinopril* (Lisinopril*) 5 Mg Tablet, 5 MG PO DAILY, #30 TAB 02/15/19 Methimazole* (Methimazole*) 5 Mg Tablet, 5 MG PO TID, TAB 02/15/19 Cholecalciferol* (Vitamin D3*) 1,000 Unit Tablet, 5000 UNIT PO DAILY, TAB 02/15/19 Propranolol Hcl* (Propranolol Hcl*) 10 Mg Tablet, 1 TAB ORAL DAILY 02/15/19 Cholecalciferol (Vitamin D3) (VITAMIN D-3) 2,000 Unit Capsule, 2000 UNIT PO DAILY, CAP 07/24/18 Loratadine (Allergy) 10 Mg Tablet, 10 MG PO DAILY, TAB 07/24/18 Atenolol* (Atenolol*) 100 Mg Tablet, 100 MG PO DAILY for NEEDED, TAB 04/12/15 Discontinued Reported Medications Hydroxyzine Hcl* (Atarax*) 25 Mg Tab, 1 TAB ORAL TID PRN for ALLERGIC REACTION 02/15/19 Primary Care Provider Not On Staff Doctor Pending Labs Laboratory Tests Test 02/18/19 11:49 02/18/19 18:17 02/19/19 06:37 Iron Level 34 ug/dl (35-150) Total Iron Binding 268 ug/dl (241-421) Capacity Percent Iron 13 % SAT (22-52) Saturation Ferritin 263.0 ng/ml (11.1-264.0) Creatine Kinase < 20 IU/L (23-200) 20 IU/L (23-200) Creatine Kinase 3.2 Index Creatinine Kinase 0.67 0.64 MB (Mass) ng/ml (0.0-2.4) ng/ml (0.0-2.4) Troponin I 0.063 0.065 ng/ml (0.000-0.120) ng/ml (0.000-0.120 ) Vitamin D 25.2 ng/ml (30-100) 1,25-Dihydroxy White Blood Count 7.9 10^3/ul (4.8-10.8) Red Blood Count 4.52 10^6/ul (4.20-5.40 ) Hemoglobin 11.4 g/dl (12.0-16.0) Hematocrit 35.5 % (37.0-47.0) Mean Corpuscular 78.5 Volume fl (82.0-101.0) Mean Corpuscular 25.2 Hemoglobin pg (29.0-33.0) Mean Corpuscular 32.1 Hemoglobin Concent g/dl (32.0-37.0) Red Cell 14.0 % (11.5-14.5) Distribution Width Platelet Count 331 10^3/UL (140-415) Mean Platelet 10.3 fl (7.4-10.4) Volume Immature 0.300 Granulocytes % % (0.001-0.429) Neutrophils % 57.7 % (39.0-77.0) Lymphocytes % 31.9 % (15.0-51.0) Monocytes % 8.3 % (0.0-11.0) Eosinophils % 1.5 % (0.0-7.0) Basophils % 0.3 % (0.0-2.0) Nucleated Red Blood 0.0 Cells % /100WBC (0.0-0.0) Immature 0.020 Granulocytes # 10^3/ul (0.0-0.031 ) Neutrophils # 4.6 10^3/ul (1.6-7.5) Lymphocytes # 2.5 10^3/ul (0.8-2.9) Monocytes # 0.7 10^3/ul (0.3-0.9) Eosinophils # 0.1 10^3/ul (0.0-0.5) Basophils # 0.0 10^3/ul (0.0-0.1) Nucleated Red Blood 0.0 Cells # 10^3/ul (0.0-0.0) Sodium Level 142 mmol/L (135-144) Potassium Level 3.4 mmol/L (3.5-5.1) Chloride Level 107 mmol/L (97-110) Carbon Dioxide 25 mmol/L (21-31) Level Anion Gap 10 (5-13) Blood Urea 13 mg/dl (7-20) Nitrogen Creatinine 0.54 mg/dl (0.44-1.00) Est Glomerular > 60 mL/min (>60) Filtrat Rate mL/min Glucose Level 93 mg/dl (70-220) Calcium Level 8.9 mg/dl (8.4-10.2) Phosphorus Level 3.8 mg/dl (2.5-4.9) Magnesium Level 1.9 mg/dl (1.7-2.5) Total Bilirubin 0.9 mg/dl (0.2-1.3) Direct Bilirubin 0.00 mg/dl (0.00-0.20) Indirect Bilirubin 0.9 mg/dl (0-1.1) Aspartate Amino 24 IU/L (15-46) Transf (AST/SGOT) Alanine 22 IU/L (13-69) Aminotransferase (A LT/SGPT) Alkaline 90 IU/L (42-121) Phosphatase Total Protein 6.5 g/dl (6.1-8.1) Albumin 3.5 g/dl (3.3-4.9) Globulin 3.00 g/dl (1.3-3.2) Albumin/Globulin 1.16 Ratio MADDIE CONRAD V. LOCKET MAKER Feb 19, 2019 10:51
--- NOTE | 2019-02-19 12:59 | RADRPT ---
Vent Rate: 101 bpm RR Interval: 0 msec WV Interval: 138 msec QRS Duration: 74 msec QT Interval: 404 msec QTC Interval: 523 msec P-R-T [place]: 50 - 36 - 102 degrees Sinus tachycardia with premature atrial complexes Possible Left atrial enlargement T wave abnormality, consider anterolateral ischemia Abnormal ECG Electronically Signed By: Aditya Jay
--- NOTE | 2019-02-19 23:38 | RADRPT ---
Echocardiogram Report Patient Name: GRISEL GANTPatient ID: [id number] : 1955 (63y 8m)Study Date: 02/18/2019 3:44:22 PM Gender: FAccession #: [id number] Tech: Cornell King [facility] Location: [facility] [place] Ref.Physician: MADDIE CONRAD Height(Cm): BSA: Weight(Kg): Quality: AdequateAccount #: Procedures: Echocardiographic Report: Transthoracic echocardiogram with complete 2D, M-Mode, and doppler examination. Indications: Chest Pain. Measurements: 2D/M Mode Doppler Measurement Value Normal Range Measurement Value Normal Range LVIDd 2D 4.0 [ 3.8 - 5.2 ] cm AV Peak Heriberto 1.7 [ 100.0 - 170.0 ] cm/sec LVIDs 2D 3.0 [ 2.2 - 3.5 ] cm AV Peak PG 11.0 [ 2.0 - 9.0 ] mmHg LVPWd 2D 1.1 [ 0.6 - 0.9 ] cm LVOT Peak Heriberto 1.0 [ 70.0 - 110.0 ] cm/sec IVSd 2D 1.2 [ 0.6 - 0.9 ] cm LVOT Peak PG 4.0 [ 2.0 - 6.0 ] mmHg AoR Diam 2D 2.7 [ 2.3 - 3.1 ] cm MV E Peak Heriberto 0.9 [ 60.0 - 130.0 ] cm/sec EDV 2D 70.0 [ 46.0 - 106.0 ] ml MV A Peak Heriberto 0.6 [ 100.0 - 120.0 ] cm/sec ESV 2D 36.4 [ 14.0 - 42.0 ] ml MV E/A 1.5 [ 0.8 - 1.5 ] ratio EF 2D 48.0 [ 54.0 - 74.0 ] percent MV Decel Time 130 [ 104 - 258 ] msec LA Dimen 2D 4.0 [ 2.7 - 3.8 ] cm Lat E` Heriberto 0.1 [ 10.0 - 15.0 ] cm/sec Lateral E/E` 11.4 [ 1.0 - 2.0 ] ratio MV E/A 1.5 [ 0.8 - 1.5 ] ratio TR Peak Heriberto 3.0 [ 100.0 - 280.0 ] cm/sec TR Peak PG 37.0 mmHg RVSP 52.0 [ 10.0 - 36.0 ] mmHg Findings: Left Ventricle: Normal left ventricular cavity size. Left ventricular wall thickness upper limits of normal. Moderate global left ventricular systolic dysfunction. Ejection fraction is visually estimated at 35-40 %. Tissue Doppler/Mitral Doppler indices are consistent with impaired relaxation (Stage I diastolic dysfunction). Right Ventricle: Normal right ventricular size. Normal right ventricular systolic function. Left Atrium: The left atrium is normal in size. Right Atrium: The right atrium is normal in size. Mitral Valve: Mild mitral leaflet calcification. Mild mitral annular calcification. Mild mitral valve regurgitation. Aortic Valve: No hemodynamically significant aortic stenosis by doppler. Aortic cusps appear mildly calcified. Tricuspid Valve: Normal appearance of the tricuspid valve. Estimated peak PA systolic pressure 52 mmHg. There is mild tricuspid regurgitation. Pericardium: Normal pericardium with no significant pericardial effusion. Left pleural effusion seen. Aorta: Normal aortic root. IVC: Dilated IVC without respiratory collapse consistent with elevated right atrial pressure. Conclusions: Normal left ventricular cavity size. Left ventricular wall thickness upper limits of normal. Moderate global left ventricular systolic dysfunction. Ejection fraction is visually estimated at 35-40 %. Tissue Doppler/Mitral Doppler indices are consistent with impaired relaxation (Stage I diastolic dysfunction). Mild mitral leaflet calcification. Mild mitral annular calcification. Mild mitral valve regurgitation. Normal appearance of the tricuspid valve. Estimated peak PA systolic pressure 52 mmHg. There is mild tricuspid regurgitation. Electronically Signed By: Kendrick Rodriguez 2019-02-19 23:37:22 PDT
== END 2019-02-19 13:10 | disposition left against medical advice (07) ==
LOC: E/R 05:13 → TEL 08:01
PROVIDERS: ADMIT Internal Medicine; ATTEND Internal Medicine
DX: R07.9 Chest pain, unspecified (principal); D50.9 Iron deficiency anemia, unspecified; I10 Essential (primary) hypertension; E05.90 Thyrotoxicosis, unspecified without thyrotoxic crisis or storm; N32.81 Overactive bladder; E55.9 Vitamin D deficiency, unspecified; Z91.14 Patient's other noncompliance with medication regimen; Z53.21 Procedure and treatment not carried out due to patient leaving prior to being seen by health care provider
CPT/HCPCS: 36415; 70450; 71045; 80053; 80061; 82306; 82550; 82553; 82652; 82728; 83036; 83540; 83735; 83880; 84100; 84439; 84443; 84481; 84484; 85025; 93005; 93306; 96374; J1630; J1650; J2060; J2916; Z7500; Z7502; Z7610; G0378